=== PATIENT | female | born 1980 | race American Indian/Alaskan Native ===

== ENCOUNTER 2017-12-13 22:13 | Emergency (ER) | payer MEDICAID ==
[2017-12-13 23:07] LABS: Basophils % (Auto) 0.3 % (0.0-1.8); Eosinophils # (Auto) 0.2 K/mm3 (0.0-0.4); Eosinophils % (Auto) 2.5 % (0.0-4.3); Hematocrit 40.1 % (30.3-42.9); Hemoglobin 12.8 gm/dl (10.1-14.3); Lymphocytes # (Auto) 2.5 K/mm3 (1.2-5.4); Lymphocytes % (Auto) 26.8 % (13.4-35.0); Mean Corpuscular HGB Conc 32 % (30-34); Mean Corpuscular Hemoglobin 29 pg (28-32); Mean Corpuscular Volume 90 fl (79-97); Monocytes # (Auto) 0.4 K/mm3 (0.0-0.8); Monocytes % (Auto) 4.3 % (0.0-7.3); Platelet Count 252 K/mm3 (140-440); Red Blood Count 4.48 M/mm3 (3.65-5.03); Red Cell Distribution Width 13.8 % (13.2-15.2)
[2017-12-13 23:28] LABS: Alanine Aminotransferase 13 units/L (7-56); Albumin 3.9 g/dL (3.9-5); BUN/Creatinine Ratio 20; Blood Urea Nitrogen 18 mg/dL (7-17); Calcium 9.1 mg/dL (8.4-10.2); Hemolysis Index 4; Lipase 65 units/L (13-60)
[2017-12-14 00:19] LABS: Bacteria,Urine 1+ /HPF (Negative); Bilirubin,Urine NEG (Negative); Blood,Urine SM (Negative); Color,Urine Yellow (Yellow); Mucus,Urine FEW /HPF; Protein,Urine <15 mg/dL mg/dL (Negative); Urobilinogen,Urine < 2.0 mg/dL (<2.0)
[2017-12-14] MEDS ORDERED: TORADOL IV ONE (04:02)
[2017-12-14] MEDS ORDERED: NACL 0.9% 1000 ML 1,000 ML IV ONE (04:03)
--- NOTE | 2017-12-14 04:09 | Emergency Department Report ---
HPI - General Chief Complaint: Abdominal Pain Time Seen by Provider: 12/14/17 00:28 - HPI HPI: The patient is 35-year-old female who presents for evaluation of left flank pain. The patient has a history of kidney stones. The patient reports constant severe 10/10 in severity, left flank pain, sharp in quality, radiating into the left lower quadrant since onset at approximately 5 PM earlier yesterday , about 12 hours prior to my eval. The patient denies fever, chills, night sweats, diarrhea, blood in the stool, dark tarry stool, dysuria, hematuria, genital discharge, inability to pass flatus. ED Past Medical Hx - Past Medical History Previous Medical History?: Yes Hx Kidney Stones: Yes (removed May 2017) - Surgical History Past Surgical History?: Yes Additional Surgical History: Kidney Stone removal - Social History Smoking Status: Never Smoker - Medications Home Medications: Home Medications Medication Instructions Recorded Confirmed Last Taken Type HYDROcodone/APAP 7.5-325 [Barnhart 1 each PO Q8HR PRN #15 tablet 12/14/17 Unknown Rx 7.5-325 mg TAB] Ibuprofen [Motrin] 800 mg PO Q8HR PRN #15 tablet 12/14/17 Unknown Rx Ondansetron [Zofran TAB] 4 mg PO Q8HR PRN #15 tablet 12/14/17 Unknown Rx amLODIPine [Norvasc] 5 mg PO DAILY #31 tab 12/14/17 Unknown Rx ED Review of Systems ROS: Stated complaint: FLANK PAIN Other details as noted in HPI Constitutional: denies: fever ENT: denies: throat or neck pain Respiratory: denies: cough, shortness of breath Cardiovascular: denies: chest pain Endocrine: denies unexplained weight loss or gain Gastrointestinal: Reports abdominal pain nausea Genitourinary: Reports left flank pain, denies: dysuria Musculoskeletal: denies: leg swelling Skin: denies: rash Neurological: denies: headache Hematological/Lymphatic: denies: easy bleeding or easy bruising Psych: denies sadness or hopelessness Physical Exam - Physical Exam Vital Signs: Vital Signs 12/13/17 12/13/17 12/14/17 22:12 22:40 00:12 Temperature 98.2 F 98.2 F Pulse Rate 95 H 97 H Respiratory 20 20 Rate Blood Pressure 125/77 125/77 O2 Sat by Pulse 97 97 99 Oximetry 12/14/17 12/14/17 12/14/17 00:15 00:30 00:46 Temperature Pulse Rate Respiratory Rate Blood Pressure 118/69 118/69 O2 Sat by Pulse 97 97 98 Oximetry 12/14/17 12/14/17 12/14/17 01:00 01:16 01:30 Temperature Pulse Rate Respiratory Rate Blood Pressure 107/66 107/66 107/66 O2 Sat by Pulse 100 96 97 Oximetry 12/14/17 12/14/17 12/14/17 01:46 02:00 02:16 Temperature Pulse Rate Respiratory Rate Blood Pressure 107/66 99/51 99/51 O2 Sat by Pulse 97 97 97 Oximetry 12/14/17 02:30 Temperature Pulse Rate Respiratory Rate Blood Pressure 99/51 O2 Sat by Pulse 97 Oximetry Physical Exam: General: well-nourished, well-developed, no acute distress Head: Normocephalic, atraumatic Eyes: normal sclera ENT: Mucous membranes are pale and dry Neck: trachea midline, neck supple, No neck stiffness, no cervical adenopathy Respiratory: Breath sounds equal bilaterally, no wheezing, rales, or rhonchi Cardio: S1 and S2 present, no murmurs, rubs, gallops, capillary refill is delayed Abdomen: Normoactive bowel sounds, soft abdomen, LLQ tenderness Chest WALL/Back: No tenderness to palpation of the chest wall, left CVA tenderness with percussion is present Musc: No pitting edema Skin: No rash Neuro: no facial drooping, normal speech Psych: Normal affect ED Course Vital Signs 12/13/17 12/13/17 12/14/17 22:12 22:40 00:12 Temperature 98.2 F 98.2 F Pulse Rate 95 H 97 H Respiratory 20 20 Rate Blood Pressure 125/77 125/77 O2 Sat by Pulse 97 97 99 Oximetry 12/14/17 12/14/17 12/14/17 00:15 00:30 00:46 Temperature Pulse Rate Respiratory Rate Blood Pressure 118/69 118/69 O2 Sat by Pulse 97 97 98 Oximetry 12/14/17 12/14/17 12/14/17 01:00 01:16 01:30 Temperature Pulse Rate Respiratory Rate Blood Pressure 107/66 107/66 107/66 O2 Sat by Pulse 100 96 97 Oximetry 12/14/17 12/14/17 12/14/17 01:46 02:00 02:16 Temperature Pulse Rate Respiratory Rate Blood Pressure 107/66 99/51 99/51 O2 Sat by Pulse 97 97 97 Oximetry 12/14/17 02:30 Temperature Pulse Rate Respiratory Rate Blood Pressure 99/51 O2 Sat by Pulse 97 Oximetry ED Medical Decision Making - Lab Data Result diagrams: 12/13/17 22:51 12/13/17 22:51 - Medical Decision Making The patient was seen and examined by myself. The patient is placed on a associate professor of library media and continuous pulse ox. On initial evaluation, the patient was found to be in no distress. Evaluation orders were placed. The patient is given IM Toradol for pain. Lab results are essentially not concerning, including normal creatinine level. CT scan abdomen and pelvis reveals a left ureter stone. The patient was reevaluated and reported that their symptoms were markedly improved. The patient is stable for discharge with outpatient follow- up. The patient is given follow-up and return instructions. The patient expressed understanding and agreed with the plan. The patient is discharged in stable condition. Critical care attestation.: If time is entered above; I have spent that time in minutes in the direct care of this critically ill patient, excluding procedure time. ED Disposition Clinical Impression: Acute left flank pain, Dehydration, Ureterolithiasis Disposition: -01 TO HOME OR SELFCARE Is pt being admited?: No Does the pt Need Aspirin: No Condition: Stable Instructions: Abdominal Pain (ED), Kidney Stones (ED), How to Strain Your Urine (ED) Referrals: ISAMAR MCCAIN MD [Staff Physician] - 3-5 Days JONAS HANSEN MD [Staff Physician] - 3-5 Days LORENZO PARADA MD [Staff Physician] - 3-5 Days Time of Disposition: 04:03
--- NOTE | 2017-12-14 04:28 | Cat Scan Report ---
FINAL REPORT PROCEDURE: CT ABDOMEN PELVIS WO CON TECHNIQUE: Computerized axial tomography of the abdomen and pelvis was performed without intravenous contrast. This study is performed without intravascular contrast material and its sensitivity for abdominal and pelvic pathology, including neoplasms, inflammation, abscess, free fluid, thrombosis, arterial dissection and infarction, is reduced compared with a contrast enhanced study. HISTORY: left flank pain, hx kidney stones COMPARISON: No prior studies are available for comparison. FINDINGS: Visualized lower thorax: No significant abnormality. Liver: Normal size and attenuation. Spleen: Normal size and attenuation. Gallbladder and biliary system: Normal. Pancreas: Normal. Adrenals: Normal. Kidneys: Both kidneys have a normal size. There is moderate left hydronephrosis and mild left hydroureter. There is a small 2 millimeter stone in the proximal left ureter. There are few left renal calculi noted. These measure between 1 and 3 millimeters. The right collecting system has a normal caliber. No hydronephrosis is seen.. GI tract: The stomach is normal. The small bowel has a normal caliber without obstruction. No ileus or enteritis. The cecum, appendix and colon are normal.. Lymph nodes and mesentery: Normal. Vasculature: Normal. Bladder: Normal. Reproductive organs: Normal. Peritoneum: No free fluid. Musculoskeletal structures: No significant abnormality. Other: None. IMPRESSION: There is moderate left hydronephrosis and proximal hydroureter with a small 2 millimeter stone in the proximal left ureter. There are left renal calculi. There is no evidence of intestinal obstruction. The appendix is normal..
[2017-12-14 05:01] VITALS: BP 122/84
== END 2017-12-14 06:05 | disposition home or self-care (01) ==
LOC: ED 22:13
DX: E86.0 Dehydration (principal); N20.0 Calculus of kidney
CPT/HCPCS: 36415; 74176; 80053; 81001; 83690; 84703; 85025; 96361; 96374; 99284; J1885; J7030